=== PATIENT | female | born 1970 | race Caucasian/White ===

== ENCOUNTER 2016-10-27 17:36 | Emergency (ER) | payer BC ==
--- NOTE | 2016-10-27 18:02 | UC ---
Palpitation/Dysrhythmia HP - HPI Summary HPI Summary: The patient comes in today for: 1. Palpitations ("I have had some funny feeling in my chest."): Onset: 3 days. Palliative/provocative: Deep breathing and relaxing was tried, but nothing makes her palpitations better or worse. Quality: Palpitations. Region: Chest Severity: No palpitations at this time. Time: It comes and goes. Associated symptoms: She states that she feels like her heart is beating fast. Associated symptoms with palpitations: She denies any chest pain, dyspnea, or near syncope History of "blood sugar problem" about 6 years ago. She fainted in 2012. She went to her physician and no problem was found. She did not do any workup for her heart. Chest pain/tightness: She had this back in 2014, and again in 2016 (ER and urgent care), in [place], [place]. She had an EKG while in the ER and was told that her chest tightness/pain was due to GERD or stress/anxiety. She had a thyroid disease (low functioning on medication). The last time her blood was checked for this was in February in 2015--it was OK at that time. Previous heart disease: None--except possibly the chest pain/tightness. She has not had any stress tests or further testing of her heart or cardiology referral. Recreational drugs/caffeine/OTC Rx: only about 5 cups of coffee a day. CAD risk factors: Age: (-), HTN: (-), DM (elevated blood sugar) (+), Smoking : (-)--though she was a smoker in the past, Fm Hx: (-), Cholesterol: ("high"), previous disease: (-). Social: She has moved to this area for the last 4 months. 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 She was living in [facility]. * - History of Current Complaint Stated Complaint: PALPITATIONS Time Seen by Provider: 10/27/16 17:46 Hx Obtained From: Patient Hx Last Menstrual Period: 2009. - Allergy/Home Medications Allergies/Adverse Reactions: Allergies Allergy/AdvReac Type Severity Reaction Status Date / Time Penicillins Allergy Hives Verified 10/27/16 17:58 Sulfate Allergy HEADACHES/V Verified 10/27/16 17:58 OMITING Home Medications: Home Medications Levothyroxine TAB* [Synthroid TAB*] 50 mcg PO 10/27/16 [History] metFORMIN* [Glucophage*] QID 10/27/16 [History] PMH/Surg Hx/FS Hx/Imm Hx Previously Healthy: Yes Endocrine History Of: Reports: Diabetes, Thyroid Disease, Hypothyroidism Denies: Hyperthyroidism, Dyslipidemia Cardiovascular History Of: Reports: Cardiac Disorders - Palpitations as in HPI. Denies: Hypertension, Pacemaker/ICD, Myocardial Infarction, Congestive Heart Failure, Atrial Fibrillation, Deep Vein Thrombosis, Bleeding Disorders Respiratory History Of: Denies: COPD, Asthma, Bronchitis, Pneumonia, Pulmonary Embolism GI/ History Of: Reports: Gastroesophageal Reflux - "Little bit of reflux" but not on medications. Denies: Ulcer, Gastrointestinal Bleed, Gall Bladder Disease, Kidney Stones, Diverticulitis, Renal Disease, Urosepsis Neurological History Of: Denies: TIA, CVA, Dementia, Seizures, Migraine Psychological History Of: Denies: Anxiety, Depression, Bipolar Disorder, Schizophrenia, Post Traumatic Stress Disorder Cancer History Of: Denies: Lung Cancer, Colorectal Cancer, Breast Cancer, Prostate Cancer, Cervical Cancer Other History Of: Negative For: HIV, Hepatitis B, Hepatitis C, Anticoagulant Therapy - Family History Known Family History: Positive: Hypertension Negative: Cardiac Disease - Social History Occupation: Employed Full-time Alcohol Use: Occasionally Substance Use Type: None Smoking Status (MU): Former Smoker Review of Systems Constitutional: Negative Skin: Negative Eyes: Negative ENT: Negative Respiratory: Negative Cardiovascular: Negative, Palpitations Gastrointestinal: Negative Genitourinary: Negative All Other Systems Reviewed And Are Negative: Yes Physical Exam Triage Information Reviewed: Yes Appearance: Well-Appearing, No Pain Distress, Well-Nourished Vital Signs Reviewed: Yes Eyes: Positive: Conjunctiva Clear. Negative: Discharge ENT: Positive: Hearing grossly normal, Nasal drainage. Negative: Pharyngeal erythema, Nasal congestion, TM bulging, TM dull, TM red, Tonsillar swelling, Tonsillar exudate Dental: Negative: Gross Decay/Caries @, Dental Fracture @ Neck: Positive: Supple, Nontender, No Lymphadenopathy, Other: - No thyromegally.. Negative: Nuchal Rigidity Respiratory: Positive: Chest non-tender, Lungs clear, No respiratory distress, No accessory muscle use. Negative: Crackles, Wheezing Cardiovascular: Positive: RRR, No Murmur Abdomen Description: Positive: Nontender, No Organomegaly, Soft. Negative: Distended, Guarding Musculoskeletal: Positive: Strength Intact, ROM Intact, No Edema Neurological: Positive: Alert, Muscle Tone Normal Psychological: Positive: Age Appropriate Behavior, Consolable Skin: Negative: rashes, breakdown Diagnostics - Laboratory Diagnostic Studies Completed/Ordered: EKG: Rate: 103. Rhythm: sinus with bigeminy. Ectopy: bigeminy. Acute changes: None. Palpitations Course/Dx - Differential Dx/Diagnosis Provider Diagnoses: Palpitations (bigeminy). Diabetes. Hypothyroidism. Discharge - Discharge Plan Condition: Stable Disposition: AGAINST MEDICAL ADVICE Patient Education Materials: Palpitations (ED) Referrals: Roscoe Page MD [Medical Doctor] - As Soon As Possible (Please see a toolroom machinist as soon as you can for evaluation of your palpitations.) [facility] [place] [facility] [Outside] Additional Instructions: Please go directly to the ER for further evaluation.
[2016-10-27 18:07] VITALS: BP 143/65
== END 2016-10-27 19:17 | disposition left against medical advice (07) ==
LOC: UCEAST 17:36
DX: R00.2 Palpitations (principal); E11.9 Type 2 diabetes mellitus without complications; Z79.84 Long term (current) use of oral hypoglycemic drugs; E03.9 Hypothyroidism, unspecified; Z88.0 Allergy status to penicillin; Z87.891 Personal history of nicotine dependence
CPT/HCPCS: 93005; 99202; G0463

== ENCOUNTER 2016-10-27 19:24 | Emergency (ER) | payer BC ==
[2016-10-27 21:01] LABS: Hematocrit 38 % (35-47); Hemoglobin 12.8 g/dl (12.0-16.0); Mean Corpuscular HGB Conc 34 g/dl (31-36); Mean Corpuscular Hemoglobin 29 pg (27-31); Mean Corpuscular Volume 86 fL (80-97); Mean Platelet Volume 8 um3 (7.4-10.4); Red Blood Count 4.37 10^6/ul (4.0-5.4); Red Cell Distribution Width 13 % (10.5-15); White Blood Count 8.7 10^3/ul (3.5-10.8)
[2016-10-27 21:10] LABS: BUN/Creatinine Ratio 22.1 (8-20); Calcium 8.7 mg/dL (8.6-10.3); EGFR African American 91.4 (>60); Globulin 2.9 g/dL (2-4); Potassium 3.6 mmol/L (3.5-5.0); Total Bilirubin 0.3 mg/dL (0.2-1.0); Total Protein 6.9 g/dL (6.4-8.9)
--- NOTE | 2016-10-27 21:10 | RAD ---
INDICATION: Chest pain COMPARISON: None. TECHNIQUE: Single AP portable view of the chest was obtained. FINDINGS: Image quality is compromised due to the relative inferiority of a portable chest x-ray. The heart and mediastinum exhibit normal size and contour. Ectatic change of the thoracic aorta is incidentally noted. The lungs are grossly clear. There is no evidence of a large pleural effusion. Visualized bones are normal for the patient's age. IMPRESSION: No radiographic evidence for acute cardiopulmonary abnormality on this portable chest x-ray.
[2016-10-27] MEDS ORDERED: Potassium Chloride LIQUID* 20 MEQ PACKET PO ONE (21:14)
[2016-10-27] MEDS ORDERED: NS 0.9% 1000 ML* 1,000 ML IV ONE (21:28)
[2016-10-28 00:04] VITALS: BP 118/56
--- NOTE | 2016-10-29 14:34 | ED ---
Desean Conner Billy, scribed for Marco A Raymond MD on 10/27/16 at 2041 . Palpitations / Dysrhythmia - HPI Summary HPI Summary: Patient is a 46 year-old female coming to [facility] presenting with intermittent palpitations for the last 3 days. She describes sensation of fast heart rate. Nothing makes her symptoms better or worse. She was sent to the ED by Dr. Aviles from [facility]. No CP, SOB, N/V/D, or calf pain/edema. She denies any significant recent EtOH use. No history of blood clots. She denies any recent flights. - History of Current Complaint Chief Complaint: EDDysrhythmPalp Time Seen by Provider: 10/27/16 20:16 Hx Obtained From: Patient Onset/Duration: Gradual Onset, Lasting Days, Still Present Timing: Intermittent Episodes Lasting: Severity Initially: Moderate Character: Fast Aggravating: Nothing Alleviating: Nothing Associated Signs & Symptoms: Negative - Allergy/Home Medications Allergies/Adverse Reactions: Allergies Allergy/AdvReac Type Severity Reaction Status Date / Time Penicillins Allergy Hives Verified 10/27/16 17:58 Sulfate Allergy HEADACHES/V Verified 10/27/16 17:58 OMITING PMH/Surg Hx/FS Hx/Imm Hx Endocrine/Hematology History: Reports: Hx Diabetes, Hx Thyroid Disease Denies: Hx Anticoagulant Therapy Cardiovascular History: Denies: Hx Congestive Heart Failure, Hx Deep Vein Thrombosis, Hx Hypertension , Hx Myocardial Infarction, Hx Pacemaker/ICD Respiratory History: Denies: Hx Asthma, Hx Chronic Obstructive Pulmonary Disease (COPD), Hx Lung Cancer, Hx Pneumonia, Hx Pulmonary Embolism GI History: Denies: Hx Gall Bladder Disease, Hx Gastrointestinal Bleed, Hx Ulcer, Hx Urosepsis History: Denies: Hx Kidney Stones, Hx Renal Disease Neurological History: Denies: Hx Dementia, Hx Migraine, Hx Seizures, Hx Transient Ischemic Attacks (TIA) Psychiatric History: Denies: Hx Anxiety, Hx Depression, Hx Schizophrenia, Hx Bipolar Disorder - Surgical History Surgery Procedure, Year, and Place: [place] 1975. 2009 Infectious Disease History: No Infectious Disease History: Denies: Traveled Outside the [place] in Last 30 Days - Family History Known Family History: Positive: Hypertension Negative: Cardiac Disease - Social History Alcohol Use: Occasionally Substance Use Type: Reports: None Smoking Status (MU): Former Smoker Have You Smoked in the Last Year: No Review of Systems Positive: Palpitations. Negative: Chest Pain Negative: Shortness Of Breath Negative: Vomiting, Diarrhea, Nausea Negative: dysuria All Other Systems Reviewed And Are Negative: Yes Physical Exam - Summary Physical Exam Summary: GENERAL: Awake, alert, oriented, no acute distress, very pleasant HEENT: Head is normocephalic, atraumatic, anicteric sclera, clear conjunctiva, mucous membranes moist, no erythema, no discharge, no lesions, neck is supple, trachea is midline, no JVD CARDIAC: Regular rate and rhythm, S1, S2, no rub, no murmur, no gallop, 2+ radial and pedal pulses bilaterally RESPIRATORY: Clear to auscultation bilaterally with no rales, rhonchi, or wheezes, non-tender ABDOMEN: Bowel sounds positive, no bruit, soft, non-tender, no CVA tenderness EXTREMITIES: No edema, warm, dry, moving all extremities in a grossly normal manner. Equal calf circumference. NEUROLOGICAL: Mood is appropriate, moving all extremities in a grossly normal manner Triage Information Reviewed: Yes Vital Signs On Initial Exam: Initial Vitals Temp Pulse Resp BP Pulse Ox 97.7 F 69 16 153/76 100 10/27/16 19:46 10/27/16 19:46 10/27/16 19:46 10/27/16 19:46 10/27/16 19:46 Vital Signs Reviewed: Yes - [place] Coma Scale Coma Scale Total: 15 Diagnostics - Vital Signs Vital Signs Temp Pulse Resp BP Pulse Ox 10/27/16 19:46 97.7 F 69 16 153/76 100 - Laboratory Result Diagrams: 10/27/16 20:35 10/27/16 20:35 Lab Statement: Any lab studies that have been ordered have been reviewed, and results considered in the medical decision making process. - Radiology CXR Xray Interpretation: No Acute Changes Radiology Interpretation Completed By: Radiologist - EKG 2003 EKG Interpretation: NSR 68 bpm, no acute ischemia Re-Evaluation - Re-Evaluation First Eval Re-Evaluation Time: 21:58 Change: Improved Second Eval Re-Evaluation Time: 22:47 Change: Improved Comment: Labs, EKG, CXR findings reviewed and discussed with the patient. Plan for discharge discussed. Course/Dx - Course Assessment/Plan: 46 year-old female to the ED with CC of intermittent palpitations for the last 3 days. She was seen by Dr. Aviles at [facility] and was sent to the ED for further workup and evaluation. CXR shows no acute disease. EKG shows NSR with no acute ischemia. Here in the ED, she was given potassium chloride with improvement to her symptoms. She will be discharged home to follow up with PCP. - Diagnoses Provider Diagnoses: Palpitations Discharge - Discharge Plan Condition: Stable Disposition: HOME Patient Education Materials: Palpitations (ED) Referrals: [facility] [place] [facility] REFERR[facility] [Outside] The documentation as recorded by the Desean sanabria Billy accurately reflects the service I personally performed and the decisions made by me, Marco A Raymond MD.
== END 2016-10-28 00:08 | disposition home or self-care (01) ==
LOC: ED 19:24
DX: R00.2 Palpitations (principal); Z86.39 Personal history of other endocrine, nutritional and metabolic disease
CPT/HCPCS: 36415; 71010; 80053; 82550; 82553; 83605; 83874; 83880; 84484; 85025; 85379; 85610; 85730; 93005; 99202; 99283; A9270-GY; G0463